=== PATIENT | female | born 1970 | race Caucasian/White ===

== ENCOUNTER → 2016-08-16 | Outpatient (CLI) | payer BC ==
--- NOTE | 2016-08-16 11:52 | REPMRS ---
Patient History The patient states she had a clinical breast exam in 08/2016. Family history of breast cancer in maternal aunt. Took hormonal contraceptives for 3 months beginning at age 44. Digital Woman Screen Mammo: August 16, 2016 - Exam #: [id number] Bilateral CC and MLO view(s) were taken. Technologist: Florence Landers, Technologist Prior study comparison: March 04, 2015, digital woman screen mammo performed at [facility]. August 09, 2010, digital bilateral screening mammo, performed at [facility]. FINDINGS: There are scattered fibroglandular densities. There has been no change in the appearance of the mammogram from the prior studies. There is a mild amount of scattered fibroglandular density which is fairly symmetric. There is no interval development of dominant mass, architectural distortion, or clustered microcalcification suggestive of malignancy. ASSESSMENT: BI-RADS/ACR category 1 mammogram. Negative. Recommendation Routine screening mammogram in 1 year (for women over age 40). This mammogram was interpreted with the aid of an FDA-approved computer-aided dectection system. Electronically Signed By: Kayden Mcgee MD 08/16/16 [id number]
== END ==
LOC: M WHC 10:18
PROVIDERS: ATTEND Nurse Practitioner Women's Health
DX: Z12.31 Encounter for screening mammogram for malignant neoplasm of breast (principal)

== ENCOUNTER → 2016-08-16 | Outpatient (REF) | payer BC | LOC: M SFHCWAGY 11:01 | PROVIDERS: ATTEND Nurse Practitioner Women's Health | DX: Z12.4 Encounter for screening for malignant neoplasm of cervix (principal); Z11.3 Encounter for screening for infections with a predominantly sexual mode of transmission | CPT/HCPCS: 87491; 87591; G0123 ==

== ENCOUNTER → 2019-01-22 | Outpatient (REF) | payer BC | LOC: M LAB REF 15:16 | PROVIDERS: ATTEND Ophthalmology | DX: L57.0 Actinic keratosis (principal) ==

== ENCOUNTER → 2020-07-15 | Outpatient (REF) | payer BC, OTHER | LOC: M LAB 19:53 | PROVIDERS: ATTEND Physician Assistant Medical | DX: Z01.89 Encounter for other specified special examinations (principal) ==

== ENCOUNTER → 2022-01-30 | Outpatient (REF) | payer OTHER | LOC: M LAB REF 11:10 | PROVIDERS: ATTEND Physician Assistant Medical | DX: R50.9 Fever, unspecified (principal) ==

== ENCOUNTER → 2022-05-03 | Outpatient (CLI) | payer OTHER ==
[2022-05-03 19:02] LABS: ESTRADIOL 35.8 PG/ML; FOLLICLE STIMULATING HORMONE 98.5 mIU/ML; FREE T4 1.05 NG/DL (0.89-1.76); PROGESTERONE 0.21 NG/ML
[2022-05-03 21:41] LABS: LUTEINIZING HORMONE 39.2 mIU/ML; THYROID STIMULATING HORMONE 2.326 uIU/ML (0.55-4.78)
== END ==
LOC: M PLALAB 13:24
PROVIDERS: ATTEND Obstetrics & Gynecology
DX: N95.1 Menopausal and female climacteric states (principal)

== ENCOUNTER → 2022-06-06 | Outpatient (REF) | payer OTHER | LOC: M LAB REF 16:30 | PROVIDERS: ATTEND Physician Assistant Medical | DX: B34.9 Viral infection, unspecified (principal) ==

== ENCOUNTER → 2023-03-01 | Outpatient (CLI) | payer OTHER ==
[2023-03-01 16:05] LABS: BASO # 0.1 10^3/uL (0.0-0.2); BASO % 0.6 % (0.0-1.0); EOS # 0.2 10^3/uL (0.0-0.5); EOS % 2.1 % (0.0-3.0); HEMATOCRIT 44.4 % (36.0-47.0); HEMOGLOBIN 14.3 g/dl (12.0-15.5); LYMPH # 2.5 10^3/uL (1.5-5.0); LYMPH % 29.7 % (24.0-44.0); MEAN CORPUSCULAR HEMOGLOBIN 30.8 pg (27.0-33.0); MEAN CORPUSCULAR HGB CONC 32.2 g/dl (32.0-36.5); MEAN CORPUSCULAR VOLUME 95.5 fl (80.0-96.0); MONO # 0.7 10^3/uL (0.0-0.8); PLATELET COUNT, AUTOMATED 234 10^3/uL (150-450); RED BLOOD COUNT 4.65 10^6/uL (4.00-5.40); WHITE BLOOD COUNT 8.5 10^3/uL (4.0-10.0)
[2023-03-01 16:31] LABS: ALBUMIN 4.1 G/DL (3.2-5.2); ALKALINE PHOSPHATASE 66 U/L (46-116); ALT/SGPT 76 U/L (7.0-40); AST/SGOT 35 U/L (<34); BILIRUBIN,TOTAL 0.3 MG/DL (0.3-1.2); BLOOD UREA NITROGEN 19 MG/DL (9-23); CALCIUM LEVEL 9.7 MG/DL (8.5-10.1); CARBON DIOXIDE LEVEL 27 MMOL/L (20-31); CHLORIDE LEVEL 103 MMOL/L (98-107); CHOLESTEROL LEVEL 271 MG/DL (<200); CREATININE FOR GFR 0.76 MG/DL (0.55-1.30); GLOMERULAR FILTRATION RATE > 60.0 (>51); GLUCOSE, FASTING 81 MG/DL (60-100); HDL CHOLESTEROL 55.3 MG/DL (>40); NON-HDL-C 215.7 MG/DL; POTASSIUM SERUM 4.2 MMOL/L (3.5-5.1); SODIUM LEVEL 139 MMOL/L (136-145); TOTAL PROTEIN 7.2 G/DL (5.7-8.2); TRIGLYCERIDES LEVEL 432 MG/DL (<150)
[2023-03-01 16:36] LABS: THYROID STIMULATING HORMONE 2.295 uIU/ML (0.55-4.78)
[2023-03-01 16:37] LABS: TOTAL 25(OH) VITAMIN D 7.8 NG/ML (20.0-100.0)
[2023-03-01 16:39] LABS: FREE T4 0.98 NG/DL (0.89-1.76)
== END ==
LOC: M PLALAB 12:21
PROVIDERS: ATTEND Family Medicine
DX: Z13.29 Encounter for screening for other suspected endocrine disorder (principal); Z13.0 Encounter for screening for diseases of the blood and blood-forming organs and certain disorders involving the immune mechanism; Z13.220 Encounter for screening for lipoid disorders; E55.9 Vitamin D deficiency, unspecified

== ENCOUNTER → 2023-10-25 | Outpatient (CLI) | payer OTHER | LOC: M WHC 14:24 | PROVIDERS: ATTEND Family Medicine | DX: Z12.31 Encounter for screening mammogram for malignant neoplasm of breast (principal) ==

== ENCOUNTER → 2024-07-10 | Outpatient (CLI) | payer BC, OTHER ==
[~2024-07-10] MED LIST: ISOVUE-370 76% 100ML VIAL As Ordered ONE
[2024-07-10 10:42] LABS: BASO % 0.5 % (0.0-1.0); EOS # 0.1 10^3/uL (0.0-0.5); EOS % 1.5 % (0.0-3.0); HEMATOCRIT 41.6 % (36.0-47.0); HEMOGLOBIN 13.8 g/dl (12.0-15.5); LYMPH # 1.8 10^3/uL (1.5-5.0); LYMPH % 24.2 % (24.0-44.0); MEAN CORPUSCULAR HEMOGLOBIN 30.9 pg (27.0-33.0); MEAN CORPUSCULAR HGB CONC 33.2 g/dl (32.0-36.5); MEAN CORPUSCULAR VOLUME 93.1 fl (80.0-96.0); MONO # 0.7 10^3/uL (0.0-0.8); MONO % 8.6 % (2.0-8.0); NEUTROPHILS # 4.9 10^3/uL (1.5-8.5); NEUTROPHILS % 64.9 % (36.0-66.0); PLATELET COUNT, AUTOMATED 231 10^3/uL (150-450); RED BLOOD COUNT 4.47 10^6/uL (4.00-5.40); WHITE BLOOD COUNT 7.6 10^3/uL (4.0-10.0)
[2024-07-10 11:02] LABS: HEMOGLOBIN A1c 4.7 % (4.0-6.0)
[2024-07-10 11:03] LABS: LIPASE 54 U/L (12-53)
[2024-07-10 11:05] LABS: ALBUMIN 4.3 G/DL (3.2-5.2); ALKALINE PHOSPHATASE 64 U/L (35-104); ALT/SGPT 34 U/L (7.0-40); AMYLASE 26 U/L (30-118); AST/SGOT 16 U/L (<34); BLOOD UREA NITROGEN 19 MG/DL (9-23); CALCIUM LEVEL 10.2 MG/DL (8.5-10.1); CARBON DIOXIDE LEVEL 26 MMOL/L (20-31); CHLORIDE LEVEL 107 MMOL/L (98-107); CHOLESTEROL LEVEL 241 MG/DL (<200); CHOLESTEROL RISK RATIO 3.07 (<5); CREATININE FOR GFR 0.69 MG/DL (0.55-1.30); GLOMERULAR FILTRATION RATE > 60.0 (>51); GLUCOSE, FASTING 80 MG/DL (60-100); HDL CHOLESTEROL 78.4 MG/DL (>40); LDL CHOLESTEROL 146.6 MG/DL (<100); NON-HDL-C 162.6 MG/DL; POTASSIUM SERUM 4.3 MMOL/L (3.5-5.1); SODIUM LEVEL 140 MMOL/L (136-145); TRIGLYCERIDES LEVEL 80 MG/DL (<150)
[2024-07-10 11:06] LABS: FOLATE 15.8 NG/ML (>5.4); TOTAL 25(OH) VITAMIN D 38.7 NG/ML (20.0-100.0); VITAMIN B12 LEVEL 1900 PG/ML (211-911)
[2024-07-10 11:07] LABS: FREE T4 1.18 NG/DL (0.89-1.76); THYROID STIMULATING HORMONE 1.444 uIU/ML (0.55-4.78)
[2024-07-14 04:23] LABS: TISSUE TRANSGLUTAMINASE IgA < 1.0 U/mL (<15.0); TISSUE TRANSGLUTAMINASE IgG < 1.0 U/mL (<15.0); UNITSIGA FOR GLIADIN IGA < 1.0 U/mL (<15.0); UNITSIGG FOR GLIADIN IGG < 1.0 U/mL (<15.0)
== END ==
LOC: M RAD 09:15
PROVIDERS: ATTEND Family Medicine
DX: K59.00 Constipation, unspecified (principal); R10.13 Epigastric pain; E55.9 Vitamin D deficiency, unspecified; E78.00 Pure hypercholesterolemia, unspecified; Z13.29 Encounter for screening for other suspected endocrine disorder
CPT/HCPCS: 36415; 74177; 80053; 80061; 82150; 82306; 82607; 82746; 83036; 83690; 84439; 84443; 85025; 86258; 86304; 86364; Q9967

== ENCOUNTER → 2024-10-30 | Outpatient (CLI) | payer BC | LOC: M PLAIMG 13:25 | PROVIDERS: ATTEND Nurse Practitioner Family | DX: M19.90 Unspecified osteoarthritis, unspecified site (principal) ==

== ENCOUNTER → 2025-01-01 | Outpatient (CLI) | payer BC | LOC: M RAD 07:30 | PROVIDERS: ATTEND Pain Medicine Interventional Pain Medicine | DX: M54.12 Radiculopathy, cervical region (principal); M47.812 Spondylosis without myelopathy or radiculopathy, cervical region; M25.78 Osteophyte, vertebrae; M48.02 Spinal stenosis, cervical region ==

== ENCOUNTER 2025-02-02 08:26 | Day surgery (SDC) | payer BC ==
[~2025-02-02] VITALS: Ht 157.5 cm; Wt 61.2 kg
[~2025-02-02 08:26] MED LIST changes: +BIOT1TAB PO; +COLLCAP PO; +ERGO500029 PO; +ESTR1DIS; +FINA1TAB4 PO; +IBUP200T46 PO; -ISOVUE-370 76% 100ML VIAL As Ordered ONE; +TIRZ2.5P3 SQ; +[UNRECOGNIZED DRUG - OTHER]; +[UNRECOGNIZED DRUG - OTHER]
[2025-02-02] MEDS ORDERED: BUPR150T12 PO (08:41)
[2025-02-02] MEDS ORDERED: PROG1CAP8 PO (08:42)
[2025-02-02] MEDS ORDERED: PROG1CAP9 PO (08:42)
[2025-02-02] MEDS ORDERED: LIDOCAINE 2% 100 MG/5 ML SDV (FOR ANES.) As Ordered ONE (09:40)
[2025-02-02] MEDS ORDERED: SCOPOLAMINE 1MG TRANSDERMAL PATCH TOP SCH (09:40)
[2025-02-02] MEDS ORDERED: ONDANSETRON 4MG 2ML VIAL As Ordered ONE (09:49)
[2025-02-02 10:14] VITALS: TEMP 97.6
[2025-02-02 10:30] VITALS: BP 108/67; O2SAT 100
== END 2025-02-02 10:44 | disposition home or self-care (01) ==
LOC: M OPP 08:26
PROVIDERS: ATTEND Surgery
DX: K63.5 Polyp of colon (principal); K57.30 Diverticulosis of large intestine without perforation or abscess without bleeding; K59.04 Chronic idiopathic constipation; R10.30 Lower abdominal pain, unspecified; K31.89 Other diseases of stomach and duodenum; R10.13 Epigastric pain; Z91.040 Latex allergy status; Z79.85 Long-term (current) use of injectable non-insulin antidiabetic drugs; Z79.899 Other long term (current) drug therapy
CPT/HCPCS: 43239; 45385; 88305; J2405

== ENCOUNTER 2025-02-04 11:21 | Emergency (ER) | payer BC ==
[~2025-02-04] VITALS: Ht 157.5 cm; Wt 61.8 kg
[~2025-02-04 11:21] MED LIST changes: +BUPR150T12 PO; -ESTR1DIS; +ESTR1DIS TOP; +PROG1CAP8 PO; +PROG1CAP9 PO; -[UNRECOGNIZED DRUG - OTHER]; +[UNRECOGNIZED DRUG - OTHER] PO
[2025-02-04] MEDS ORDERED: ISOVUE-370 76% 100 ML VIAL As Ordered ONE (12:05)
[2025-02-04 12:08] LABS: BASO # 0.0 10^3/uL (0.0-0.2); BASO % 0.4 % (0.0-1.0); EOS # 0.1 10^3/uL (0.0-0.5); EOS % 0.7 % (0.0-3.0); LYMPH # 1.3 10^3/uL (1.5-5.0); LYMPH % 15.4 % (24.0-44.0); MONO # 0.7 10^3/uL (0.0-0.8); MONO % 8.5 % (2.0-8.0); NEUTROPHILS # 6.3 10^3/uL (1.5-8.5); NEUTROPHILS % 74.5 % (36.0-66.0); PLATELET COUNT, AUTOMATED 288 10^3/uL (150-450)
[2025-02-04 12:23] VITALS: BP 162/78; TEMP 99.1
[2025-02-04 12:23] LABS: INR 0.85
[2025-02-04 12:42] LABS: CALCIUM LEVEL 9.9 MG/DL (8.5-10.1); CARBON DIOXIDE LEVEL 26 MMOL/L (20-31); CHLORIDE LEVEL 106 MMOL/L (98-107); CREATININE FOR GFR 0.62 MG/DL (0.55-1.30); GLOMERULAR FILTRATION RATE > 90.0 (>51); POTASSIUM SERUM 3.9 MMOL/L (3.5-5.1); SODIUM LEVEL 145 MMOL/L (136-145)
[2025-02-04 12:49] VITALS: BP 151/78; TEMP 99.4; O2SAT 99
[2025-02-04] MEDS ORDERED: VALA-3 PO (15:04)
[2025-02-04] MEDS ORDERED: MIRA3350 PO (15:04)
[2025-02-04] MEDS ORDERED: MAGN250T11 PO (15:04)
[2025-02-04] MEDS ORDERED: HOME MED LIST COMPLETE! XX SCH (15:05)
[2025-02-04 23:45] VITALS: BP 140/87; TEMP 98.5; O2SAT 99
== END 2025-02-04 23:46 | disposition home or self-care (01) ==
LOC: M ED 11:21
DX: T43.8X5A Adverse effect of other psychotropic drugs, initial encounter (principal); R22.42 Localized swelling, mass and lump, left lower limb; F41.9 Anxiety disorder, unspecified; F32.A Depression, unspecified; Z91.040 Latex allergy status; Z91.018 Allergy to other foods; Z79.1 Long term (current) use of non-steroidal anti-inflammatories (NSAID); Z79.899 Other long term (current) drug therapy
CPT/HCPCS: 36415; 70450; 70496; 70498; 70544; 70551; 71045; 80047; 80048; 85025; 85610; 85730; 93005; 93041; 93971; 94760; 99285; Q9967

== ENCOUNTER → 2025-02-25 | Outpatient (REF) | payer BC ==
[~2025-02-25] MED LIST changes: +MAGN250T11 PO; +MIRA3350 PO; +VALA-3 PO
[2025-03-01 13:57] LABS: EBV AB TO NUCLEAR ANTIGEN < 18.00 U/mL (<18.00); EBV VIRAL CAPSID AG IGG 143.00 U/mL (<18.00); EBV VIRAL CAPSID AG IGM < 36.00 U/mL (<36.00)
[2025-03-02 11:48] LABS: Antimyeloperxidase(MPO) Abs < 1.0 AI (<1.0)
[2025-03-04 00:04] LABS: HSV 1 IGG TYPE SPECIFIC 43.70 index (<0.90); HSV 2 IGG TYPE SPECIFIC 20.20 index (<0.90)
== END ==
LOC: M SFHCRHEU 11:02
PROVIDERS: ATTEND Internal Medicine
DX: K12.1 Other forms of stomatitis (principal); R53.83 Other fatigue

== ENCOUNTER → 2025-04-20 | Outpatient (CLI) | payer BC | LOC: M SLEEP HO 13:24 | PROVIDERS: ATTEND Internal Medicine | DX: R53.83 Other fatigue (principal) ==